=== PATIENT | male | born 1985 ===

== ENCOUNTER 2017-01-07 21:05 | Emergency (ER) | payer OTHER ==
[2017-01-07] MEDS ORDERED: NS 0.9% 1000 ML* 1,000 ML IV ONE (21:36)
--- NOTE | 2017-01-07 22:26 | RAD ---
HISTORY: Fall, head injury COMPARISONS: None TECHNIQUE: Multiple contiguous axial CT scans were obtained of the head without intravenous contrast. FINDINGS: HEMORRHAGE/INFARCT: There is no hemorrhage or acute infarct. MASSES/SHIFT: There is no mass or shift. EXTRA-AXIAL SPACES: There are no extra-axial fluid collections. SULCI AND VENTRICLES: The sulci and ventricles are normal in size and position for the patient's stated age. CEREBRUM: There are no focal parenchymal abnormalities. BRAINSTEM: There are no focal parenchymal abnormalities. CEREBELLUM: There are no focal parenchymal abnormalities. VESSELS: The vessels are grossly normal. PARANASAL SINUSES: The paranasal sinuses are clear. ORBITS: The orbits are unremarkable. BONES AND SOFT TISSUE: No bone or soft tissue abnormalities are noted. OTHER: None IMPRESSION: NO ACUTE INTRACRANIAL PATHOLOGY.
--- NOTE | 2017-01-07 22:28 | RAD ---
HISTORY: Fall, back pain, unable to move right leg COMPARISONS: None TECHNIQUE: Multiple contiguous axial CT scans were obtained of the lumbar spine without intravenous contrast, with coronal and sagittal multiplanar reformations. FINDINGS: The study is limited by patient motion artifact.Evaluation is also limited by streak artifact. SPINAL CANAL: Evaluation of the central canal is limited on CT technique; however, there is no obvious canalicular mass or epidural hemorrhage. ALIGNMENT: The alignment is normal. VERTEBRAL BODIES: The vertebral bodies are preserved in height. The bones are normal in attenuation. JOINTS: Unremarkable MUSCULATURE: Unremarkable INTERVERTEBRAL DISCS: There is mild diffuse loss of intervertebral disc height throughout the spine. AXIAL IMAGES: L1-L2: There is no osseous neural foraminal narrowing or central canal stenosis. L2-L3: There is no osseous neural foraminal narrowing or central canal stenosis. L3-L4: There is no osseous neural foraminal narrowing or central canal stenosis. L4-L5: There is no osseous neural foraminal narrowing or central canal stenosis. L5-S1: There is no osseous neural foraminal narrowing or central canal stenosis. SOFT TISSUES: The visualized soft tissues of the abdomen are unremarkable. OTHER: None IMPRESSION: 1. LIMITED STUDY. 2. WITHIN THE LIMITATIONS OF THE STUDY, THERE IS NO ACUTE OSSEOUS INJURY TO THE LUMBAR SPINE. IF SYMPTOMS PERSIST, RECOMMEND CONSIDERATION OF ADDITIONAL IMAGING
--- NOTE | 2017-01-07 22:38 | RAD ---
HISTORY: Fall, head injury, back pain, unable to move right leg COMPARISONS: None TECHNIQUE: Multiple contiguous axial CT scans were obtained of the cervical spine without intravenous contrast, with coronal and sagittal multiplanar reformations. FINDINGS: BRAIN: The visualized brain is unremarkable CENTRAL CANAL: Evaluation of the central canal is limited on CT technique, however there is no obvious canalicular mass or epidural hemorrhage. ALIGNMENT: There is straightening of the normal cervical lordosis. VERTEBRAL BODIES: The odontoid process is intact. The atlantoaxial intervals are symmetric. The vertebral bodies are normal in attenuation, without fracture. JOINTS: There is no subluxation MUSCULATURE: Unremarkable INTERVERTEBRAL DISCS: There is mild diffuse loss of intervertebral disc height. AXIAL IMAGES: There is no osseous neural foraminal narrowing or central canal stenosis SOFT TISSUES: The visualized soft tissues of the neck are unremarkable. The prevertebral fat stripe is preserved. There is a radiopaque foreign body in the subcutaneous fat along the posterior neck measuring approximately 0.5 cm in size OTHER: None. IMPRESSION: 1. NO ACUTE OSSEOUS INJURY TO THE CERVICAL SPINE. 2. INCIDENTALLY NOTED IS A SMALL RADIO OPAQUE FOREIGN BODY IN THE SUBCUTANEOUS FAT ALONG THE POSTERIOR NECK
[2017-01-07 22:50] LABS: Hematocrit 42 % (42-52); Hemoglobin 13.8 g/dl (14.0-18.0); Mean Corpuscular HGB Conc 33 g/dl (31-36); Mean Corpuscular Hemoglobin 32 pg (27-31); Mean Corpuscular Volume 96 fL (80-94); Mean Platelet Volume 11 um3 (7.4-10.4); Red Blood Count 4.33 10^6/ul (4.0-5.4); Red Cell Distribution Width 13 % (10.5-15); White Blood Count 8.9 10^3/ul (3.5-10.8)
[2017-01-07 23:05] LABS: Albumin 3.9 g/dL (3.2-5.2); BUN/Creatinine Ratio 12.9 (8-20); Calcium 9.3 mg/dL (8.6-10.3); EGFR African American 121.9 (>60); EGFR Non-African American 94.8 (>60); Globulin 3.2 g/dL (2-4); Total Bilirubin 0.5 mg/dL (0.2-1.0); Total Protein 7.1 g/dL (6.4-8.9)
[2017-01-07] MEDS ORDERED: Iohexol 300* (CONTRAST) 10 ML SDV IV ONE (23:22)
[2017-01-08 01:30] VITALS: BP 122/69
[2017-01-08] MEDS ORDERED: oxyCODONE/Acetamin 5/325 MG* TAB PO ONE (01:58)
[2017-01-08] MEDS ORDERED: Ibuprofen TAB* 800 MG PO ONE (01:59)
--- NOTE | 2017-01-08 02:34 | ED ---
Bhavani Brooks Rebecca, scribed for Cierra Velezuel on 01/07/17 at 2140 . Adult Trauma - HPI Summary HPI Summary: Pt is a 31 y/o M BIBA from [facility] who presents to ED s /p mechanical fall from standing, c/o neck and back pain. Reports that at 1739 today, he fell in the shower, hitting the R lumbar region and back of the head. Pain is currently severe, ranked 9/10, and began immediately upon impact. Pain is characterized as sharp. Sx aggravated by movement and alleviated by nothing. 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 Additionally c/o RLE numbness and diminished ROM, stating "I just can't move it, I tried" and "it feels like it's stiff." Reports he was not ambulatory after the incident. Was carried out via stretcher. Denies LOC. Denies abd pain, CP. Allergies to Ibuprofen and turkey. - History of Current Complaint Chief Complaint: EDNeckComplaint Stated Complaint: FALL RIGHT SIDE HEAD PAIN Time Seen by Provider: 01/07/17 21:24 Hx Obtained From: Patient Mechanism of Injury: Fall Ambulatory at the Scene: No Loss of Consciousness: no loss of consciousness Onset/Duration: Started Hours Ago, Still Present Onset of Pain: Immediate, Prior to Arrival Onset Severity: Severe Current Severity: Severe Pain Intensity: 9 Pain Scale Used: 0-10 Numeric Location: Head, Back - R lumbar Character: Sharp Aggravating Factor(s): Movement Alleviating Factor(s): Nothing Associated Signs & Symptoms: Positive: Numbness/Weakness - RLE with decreased ROM. Negative: Chest Pain, Abdominal Pain - Allergy/Home Medications Allergies/Adverse Reactions: Allergies Allergy/AdvReac Type Severity Reaction Status Date / Time Ibuprofen Allergy Unknown Verified 01/07/17 21:09 Reaction Details turkey Allergy Unknown Uncoded 01/07/17 21:09 Reaction Details PMH/Surg Hx/FS Hx/Imm Hx Cardiovascular History: Reports: Hx Hypertension Respiratory History: Reports: Hx Asthma Infectious Disease History: No Infectious Disease History: Denies: Traveled Outside the [place] in Last 30 Days - Family History Known Family History: Positive: Hypertension, Other - Breast CA - Social History Alcohol Use: None Substance Use Type: Reports: None Smoking Status (MU): Former Smoker Review of Systems Negative: Chest Pain Negative: Abdominal Pain Positive: Arthralgia - R lumbar and R-sided neck pain Positive: Numbness - RLE numbness with diminished ROM All Other Systems Reviewed And Are Negative: Yes Physical Exam Triage Information Reviewed: Yes Vital Signs On Initial Exam: Initial Vitals Temp Pulse Resp BP Pulse Ox 97.5 F 68 16 136/87 100 01/07/17 21:05 01/07/17 21:05 01/07/17 21:05 01/07/17 21:05 01/07/17 21:05 Vital Signs Reviewed: Yes Appearance: Positive: Well-Appearing Skin: Positive: Warm, Skin Color Reflects Adequate Perfusion, Dry Eyes: Positive: EOMI, GLADIS Neck: Positive: Other: - C-collar in place Respiratory/Lung Sounds: Positive: Clear to Auscultation, Breath Sounds Present Cardiovascular: Positive: RRR, Pulses are Symmetrical in both Upper and Lower Extremities Abdomen Description: Positive: Nontender, Soft Bowel Sounds: Positive: Present Musculoskeletal: Positive: Interruption @ - Unable to move RLE Neurological: Positive: Normal, Sensory/Motor Intact, Alert, Oriented to Person Place, Time Diagnostics - Vital Signs Vital Signs Temp Pulse Resp BP Pulse Ox 01/07/17 21:17 66 99 01/07/17 21:06 97.5 F 98 16 136/87 100 01/07/17 21:05 97.5 F 68 16 136/87 100 - Laboratory Result Diagrams: 01/07/17 22:42 01/07/17 22:42 Lab Statement: Any lab studies that have been ordered have been reviewed, and results considered in the medical decision making process. - CT Brain CT CT Interpretation: No Acute Changes - NO ACUTE INTRACRANIAL PATHOLOGY. CT Interpretation Completed By: Radiologist CT L-Spine CT Interpretation: No Acute Changes - 1. LIMITED STUDY. 2. WITHIN THE LIMITATIONS OF THE STUDY, THERE IS NO ACUTE OSSEOUS INJURY TO THE LUMBAR SPINE. IF SYMPTOMS PERSIST, RECOMMEND CONSIDERATION OF ADDITIONAL IMAGING CT Interpretation Completed By: Radiologist CT C-Spine CT Interpretation: No Acute Changes - 1. NO ACUTE OSSEOUS INJURY TO THE CERVICAL SPINE. 2. INCIDENTALLY NOTED IS A SMALL RADIO OPAQUE FOREIGN BODY IN THE SUBCUTANEOUS FAT ALONG THE POSTERIOR NECK CT Interpretation Completed By: Radiologist Chest/Abd/Pel CT CT Interpretation: No Acute Changes - See report CT Interpretation Completed By: Radiologist Re-Evaluation - Re-Evaluation First Eval Re-Evaluation Time: 01:58 Change: Improved Comment: Pt is feeling much better. Adult Trauma Course/Dx - Course Assessment/Plan: Pt came to ED with back and neck pain after a fall. Labs, CT brain, CT chest/abd/pel, CT c-spine and CT l-spine were done. No acute findings or fractures. Pt will be D/C to home with Motrin for a followup with PCP in 3 days with Dx of back sprain, neck sprain and fall. - Diagnoses Provider Diagnoses: Fall, Neck sprain, Back sprain Discharge - Discharge Plan Condition: Stable Disposition: HOME Patient Education Materials: Neck Pain (ED) Referrals: Anni KAUR,Radha Ball [Primary Care Provider] - 3 Days The documentation as recorded by the Bhavani ojeda Rebecca accurately reflects the service I personally performed and the decisions made by , Jose Velez.
--- NOTE | 2017-01-08 11:32 | RAD ---
INDICATION: Back pain after a fall. Relevant surgical history includes appendectomy. COMPARISON: None. TECHNIQUE: Multidetector CT images were obtained from the lung apices to the ischial tuberosities with IV and oral contrast. CHEST: The lungs exhibit diffuse centrilobular emphysematous changes.The lungs are grossly clear without nodules, masses or other focal abnormality. There are no significant pleural effusions bilaterally. The heart and thoracic aorta are normal in size and morphology. There is no mediastinal or hilar lymphadenopathy. ABDOMEN \T\ PELVIS: The patient was imaged in what appears to be healing contrast and shackles surrounding his mid-level abdomen. This creates extraordinary artifact that severely limits evaluation of the abdominal solid organs. The liver, spleen, pancreas and adrenal glands are grossly normal in appearance. The gallbladder is normal. The kidneys are normal in appearance without focal mass, calcification or signs of hydronephrosis. The oral contrast has progressed as far as the . The small and large bowel are not distended. There is no gross retroperitoneal or mesenteric lymphadenopathy. The pelvic viscera is normal in appearance. The abdominal aorta and iliac arteries are normal in course and diameter. Mild degenerative changes include loss of intervertebral disc height involving the thoracic and lumbar spine as well as early anterior marginal osteophyte formation at T11/T12. No fracture or dislocation is visualized at the lumbar spine. There are no sinister bone lesions. IMPRESSION: 1. Evaluation of the abdominal structures including the lower thoracic and lumbar spine is significantly limited by streak artifact caused by the patient's arms at his side, handcuffs and metal chains surrounding his abdomen. If there is strong clinical suspicion for abdominopelvic pathology then I recommend repeating the images with the patient's arms and hands above his head and the metal chain around his abdomen removed. (Strictly from an imaging perspective, it is not necessary to remove the handcuffs as long as they are above his head when imaging the abdomen). 2. There is no CT evidence of acute fracture or dislocation involving the thoracic or lumbar spine.
== END 2017-01-08 02:15 | disposition home or self-care (01) ==
LOC: ED 21:05
DX: S13.9XXA Sprain of joints and ligaments of unspecified parts of neck, initial encounter (principal); S33.5XXA Sprain of ligaments of lumbar spine, initial encounter; W18.2XXA Fall in (into) shower or empty bathtub, initial encounter; Y93.E1 Activity, personal bathing and showering; Y92.192 Bathroom in other specified residential institution as the place of occurrence of the external cause; I10 Essential (primary) hypertension; J45.909 Unspecified asthma, uncomplicated; Z88.6 Allergy status to analgesic agent; Z87.891 Personal history of nicotine dependence
CPT/HCPCS: 36415; 70450; 71260; 72125; 72131; 74177; 80053; 85025; 85610; 96361; 96374; 99283; A9270-GY; Q9967